=== PATIENT | female | born 1990 | race African-American/Black ===

== ENCOUNTER 2017-07-15 13:51 | Emergency (ER) | payer MEDICAID ==
[~2017-07-15] VITALS: Ht 170.2 cm; Wt 59.0 kg
[2017-07-15 16:18] LABS: CLARITY URINE CLOUDY (CLEAR); COLOR URINE YELLOW (YELLOW); KETONES URINE NEGATIVE (NEGATIVE); LEUKOCYTE ESTERASE URINE NEGATIVE (NEGATIVE); NITRITE URINE NEGATIVE (NEGATIVE); OCCULT BLOOD URINE NEGATIVE (NEGATIVE); PH URINE 5.5 (4.5-8.0); PROTEIN URINE NEGATIVE (NEGATIVE); SPECIFIC GRAVITY URINE 1.022 (1.005-1.030); UROBILINOGEN URINE 0.2 E.U./dL (0.2-1.0)
[2017-07-15] MEDS ORDERED: IBUPROFEN 600MG TABLET PO ONE (16:45)
[2017-07-15 17:27] VITALS: BP 107/71
== END 2017-07-15 17:37 | disposition home or self-care (01) ==
LOC: ER 14:18
DX: R07.81 Pleurodynia (principal); M54.9 Dorsalgia, unspecified
CPT/HCPCS: 71101; 81001; 81025; 99285